=== PATIENT | female | born 1990 | race Caucasian/White ===

== ENCOUNTER 2019-02-17 15:22 | Outpatient (CLI) | payer BC ==
[2019-02-17 16:21] LABS: HCG UR QUAL NEGATIVE
== END 2019-02-17 15:23 | disposition home or self-care (01) ==
LOC: LAB 15:22
PROVIDERS: ATTEND Nurse Practitioner
DX: Z32.00 Encounter for pregnancy test, result unknown (principal); F41.8 Other specified anxiety disorders
CPT/HCPCS: 36415; 81025; 84443; 84703

== ENCOUNTER 2019-04-07 07:44 | Outpatient (CLI) | payer BC ==
[2019-04-07 08:56] LABS: HB2 TOTAL 13.9 g/dL; HEMOGLOBIN A1C 0.52 g/dL; HEMOGLOBIN A1C % 5.6 % (4.6-6.2)
== END 2019-04-07 07:45 | disposition home or self-care (01) ==
LOC: LAB 07:44
PROVIDERS: ATTEND Nurse Practitioner Obstetrics & Gynecology
DX: E66.9 Obesity, unspecified (principal)
CPT/HCPCS: 36415; 82950; 82951; 83036

== ENCOUNTER 2020-05-04 09:29 | Outpatient (CLI) | payer OTHER ==
[2020-05-04 11:38] LABS: BASOPHILS % (AUTO) 0.6 %; EOSINOPHILS # (AUTO) 0.2 10^3/uL (0.0-0.7); EOSINOPHILS % (AUTO) 3.2 %; LYMPHOCYTES # (AUTO) 2.3 10^3/uL (1.5-3.5); LYMPHOCYTES % (AUTO) 31.8 %; MEAN CORPUSCULAR HEMOGLOBIN 28.8 pg (27.0-31.0); MEAN CORPUSCULAR HGB CONC 32.5 g/dL (32.0-36.0); MEAN CORPUSCULAR VOLUME 88.7 fL (81.0-99.0); MEAN PLATELET VOLUME 11.4 fL (7.9-10.8); MONOCYTES # (AUTO) 0.4 10^3/uL (0.0-1.0); MONOCYTES % (AUTO) 6.1 %; NEUTROPHILS # (AUTO) 4.1 10^3/uL (1.5-6.6); NEUTROPHILS % (AUTO) 57.9 %; PLT - PLATELET COUNT 294 10^3/uL (130-450); RED BLOOD COUNT 4.86 10^6/uL (4.20-5.40); RED CELL DISTRIBUTION WIDTH 12.5 % (12.0-15.0); WHITE BLOOD COUNT 7.2 x10^3/uL (4.8-10.8)
[2020-05-04 13:01] LABS: HB2 TOTAL 14.5 g/dL; HEMOGLOBIN A1C 0.48 g/dL; HEMOGLOBIN A1C % 5.2 % (4.6-6.2)
[2020-05-04 13:03] LABS: ALBUMIN 4.1 g/dL (3.2-5.5); ALBUMIN/GLOBULIN RATIO 1.3 (1.0-2.2); ALKALINE PHOSPHATASE 80 IU/L (42-121); ALT ALANINE AMINOTRANSFERASE 44 IU/L (10-60); AST ASPARTATE AMINOTRANSFERASE 24 IU/L (10-42); BILIRUBIN,TOTAL 0.5 mg/dL (0.2-1.0); BUN - BLOOD UREA NITROGEN 13 mg/dL (6-20); CALCIUM 9.2 mg/dL (8.5-10.3); CARBON DIOXIDE - CO2 26 mmol/L (21-32); CHLORIDE 103 mmol/L (101-111); CHOL/HDL RATIO 4.7 (<4.4); CHOLESTEROL 196 mg/dL; CREATININE 0.8 mg/dL (0.4-1.0); GLUCOSE 92 mg/dL (70-100); HDL CHOLESTEROL 42 mg/dL; LDL CHOLESTEROL,CALCULATED 126 mg/dL; SODIUM 138 mmol/L (135-145); TOTAL PROTEIN 7.2 g/dL (6.7-8.2); VLDL CHOLESTEROL 28 mg/dL
[2020-05-04 13:09] LABS: FREE T3 2.8 pg/mL (2.5-3.9); THYROID STIMULATING HORMONE 6.81 uIU/mL (0.34-5.60)
[2020-05-04 13:11] LABS: FREE T4 (FREE THYROXINE) 0.68 ng/dL (0.58-1.64)
== END 2020-05-04 23:59 | disposition home or self-care (01) ==
LOC: LAB.WCP 09:29
PROVIDERS: ATTEND Nurse Practitioner Family
DX: E28.2 Polycystic ovarian syndrome (principal); E66.9 Obesity, unspecified; E06.3 Autoimmune thyroiditis
CPT/HCPCS: 36415; 80053; 80061; 83036; 83721; 84439; 84443; 84481; 85025

== ENCOUNTER 2020-05-10 06:44 | Outpatient (CLI) | payer OTHER ==
--- NOTE | 2020-05-10 10:05 | Ultrasound Report ---
PROCEDURE: Head or Neck Soft Tissue INDICATIONS: NAHOMY THYROIDITIS TECHNIQUE: Real time scanning was performed of the neck region of interest, with image documentation . COMPARISON: None. FINDINGS: The thyroid gland is mildly enlarged. The right thyroid lobe measures approximately 2.3 x 5 .6 cm. The left thyroid lobe measures approximately 2.2 x 5.0 cm. The isthmus measures approximately 0.9 cm in thickness. There is diffusely heterogenous thyroid echotexture. There are a few small nodul es which are of variable echogenicity and has ill-defined margins, consistent with the provided histo ry of Nahomy thyroiditis. There is no suspicious nodule warranting FNA. IMPRESSION: Mildly enlarged thyroid gland with heterogenous echotexture and multinodular appearance. 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 There is no suspicious thyroid nodule war ranting FNA by TI-RADS criteria. Reviewed by: Maco Rivera MD on 05/10/2020 10:03 AM PDT Approved by: Maco Rivera MD on 05/10/2020 10:03 AM PDT Station ID: [id number]
== END 2020-05-10 06:45 | disposition home or self-care (01) ==
LOC: DI 06:44
PROVIDERS: ATTEND Nurse Practitioner Family
DX: E06.3 Autoimmune thyroiditis (principal)
CPT/HCPCS: 76536

== ENCOUNTER 2020-11-04 19:25 | Emergency (ER) | payer OTHER ==
[2020-11-04] MEDS ORDERED: NAPROXEN 250 MG TABLET PO STA (19:47)
[2020-11-04 19:48] LABS: BILIRUBIN,URINE NEGATIVE (NEGATIVE); GLUCOSE, URINE (UA) NEGATIVE (NEGATIVE); KETONES,URINE (UA) NEGATIVE (NEGATIVE); LEUKOCYTE ESTERASE, URINE NEGATIVE (NEGATIVE); NITRITE,URINE NEGATIVE (NEGATIVE); OCCULT BLOOD,URINE NEGATIVE (NEGATIVE); PROTEIN,URINE NEGATIVE (NEGATIVE); UROBILINOGEN,URINE 0.2 (NORMAL) E.U./dL (NORMAL)
--- NOTE | 2020-11-04 19:48 | ED Physician Documentation ---
PD HPI ABD PAIN - Stated complaint Stated Complaint: ABDOMINAL PX - Chief complaint Chief Complaint: Abd Pain - History obtained from History obtained from: Patient - Additional information Additional information: 30-year-old woman with history of PCOS has had about a month and a half of constant but also waxing and waning left pelvic pain radiating to the buttocks and thighs. It is not associated vaginal bleeding, in fact her last menses was in July. It feels like previous cyst pain. She was scheduled for an ultrasound but there was some sort of mixup and was scheduled for physical thera py instead. She presents because the pain was briefly severe tonight but only for about 3 minutes. 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 Psych: Depression - Past Surgical History Past Surgical History: Yes HEENT: Tonsil/Adenoidectomy - Present Medications Home Medications: Ambulatory Orders Medication Instructions Recorded Confirmed Escitalopram [Lexapro] 10 mg PO DAILY 11/04/20 11/04/20 Metformin HCl [Metformin ER 500 mg PO TID 11/04/20 11/04/20 Osmotic] Naproxen [EC-Naproxen] 500 mg PO BID PRN #120 11/04/20 - Allergies Allergies/Adverse Reactions: Allergies Allergy/AdvReac Type Severity Reaction Status Date / Time levothyroxine sodium AdvReac Intermediate Dizziness Verified 11/04/20 19:58 - Social History Does the pt smoke?: No Smoking Status: Never smoker Does the pt drink ETOH?: No Does the pt have substance abuse?: No - Immunizations Immunizations are current?: Yes - POLST Patient has POLST: No PD ED PE NORMAL - Vitals Vital signs reviewed: Yes - General General: Alert and oriented X 3, No acute distress - Abdomen Abdomen: Soft, Non tender, Other (Exam somewhat limited by body habitus) - Back Back: No CVA TTP, No spinal TTP - Derm Derm: Normal color, Warm and dry - Extremities Extremities: No edema, No calf tenderness / cord - Neuro Neuro: Alert and oriented X 3, Normal speech Results - Vitals Vitals: Vital Signs - 24 hr 11/04/20 11/04/20 19:25 20:57 Temperature 37.2 C 36.7 C Heart Rate 93 91 Respiratory 18 16 Rate Blood Pressure 175/104 H 148/87 H O2 Saturation 99 100 Oxygen O2 Source Room air - Labs Labs: Laboratory Tests 11/04/20 11/04/20 19:29 19:29 Urine Color YELLOW Urine Clarity HAZY Urine pH 7.0 Ur Specific Zahl 1.020 Urine Protein NEGATIVE Urine Glucose (UA) NEGATIVE Urine Ketones NEGATIVE Urine Occult Blood NEGATIVE Urine Nitrite NEGATIVE Urine Bilirubin NEGATIVE Urine Urobilinogen 0.2 (NORMAL) Ur Leukocyte Esterase NEGATIVE Urine RBC None Seen Urine WBC 0-3 Ur Squamous Epith Cells RARE Squamous Urine Bacteria Rare Ur Microscopic Review INDICATED Urine Culture Comments NOT INDICATED Urine HCG, Qual NEGATIVE PD MEDICAL DECISION MAKING - ED course ED course: 30-year-old woman presents with left pelvic pain. She has a history of PCOS. An ultrasound was done and grossly normal although with multiple follicles and borderline endometrial hyperplasia. She will follow up with her upward bound director. Advised an NSAID in the meantime. Departure - Departure Disposition: 01 Home, Self Care Clinical Impression: Pelvic pain Condition: Good Record reviewed to determine appropriate education?: Yes Instructions: ED Pelvic Pain [facility] Prescriptions: Naproxen [EC-Naproxen] 500 mg PO BID PRN #120 PRN Reason: Pain Comments: Follow-up in the women's clinic as scheduled for further evaluation and treatment. Return for new or worsening symptoms. Discharge Date/Time: 11/04/20 21:14
[2020-11-04 19:53] LABS: CLARITY,URINE HAZY (CLEAR); HCG UR QUAL NEGATIVE
[2020-11-04 20:08] LABS: BACTERIA,URINE Rare /HPF (None Seen); RBC,URINE None Seen /HPF (0-5); SQUAMOUS EPITHELIAL CELL,UR RARE Squamous (<= Few)
[2020-11-04 20:58] VITALS: BP 148/87
--- NOTE | 2020-11-04 21:18 | Ultrasound Report ---
PROCEDURE: Pelvic w/Transvag+Doppler Comp INDICATIONS: L pelvic pain TECHNIQUE: Real-time scanning was performed of the pelvic organs, with image documentation. Additional endovagi nal scanning was necessary due to incomplete visualization of the adnexal and endometrial structures by transabdominal scanning. COMPARISON: Pelvic ultrasound 05/06/2020.. FINDINGS: No pathologic free abdominal or pelvic fluid. Uterus: Uterus is normal in size at 4.4 x 4.7 x 7.3 cm., Retroverted The endometrium measures 14.9 mm in combined thickness, at the threshold of hyperplastic. Ovaries: The right ovary measures 3.4 x 2.9 x 3.6 cm and the left measures 2.9 x 3.2 x 2.5 cm. There is no suspicion for ovarian torsion. IMPRESSION: A previously reported IUD has been removed and no IUD fragment is identified. No sign of ovarian tors ion bilaterally. No reactive free fluid throughout the peritoneal space. Retroverted uterus, normal i n size. The endometrial lining thickness is at the threshold for hyperplasia, but no abnormal endomet rial inflammation or nodule/polyp is seen. Reviewed by: Johnny Wilson MD on 11/04/2020 9:16 PM PST Approved by: Johnny Wilson MD on 11/04/2020 9:16 PM PST Station ID: [id number]
== END 2020-11-04 21:14 | disposition home or self-care (01) ==
LOC: ED 19:25
DX: R10.2 Pelvic and perineal pain (principal); N85.00 Endometrial hyperplasia, unspecified
CPT/HCPCS: 76830; 76856; 81001; 81025; 93975; 99284; A9270; 81003; 87086

== ENCOUNTER 2020-11-19 15:59 | Outpatient (CLI) | payer OTHER | END 2020-11-19 23:59 | disposition home or self-care (01) | LOC: LAB.WCP 15:59 | PROVIDERS: ATTEND Family Medicine | DX: K90.0 Celiac disease (principal); R11.2 Nausea with vomiting, unspecified | CPT/HCPCS: 36415; 83516 ==

== ENCOUNTER 2021-11-02 09:42 | Outpatient (CLI) | payer OTHER ==
[2021-11-02 14:01] LABS: BASOPHILS # (AUTO) 0.1 10^3/uL (0.0-0.1); BASOPHILS % (AUTO) 0.8 %; EOSINOPHILS # (AUTO) 0.3 10^3/uL (0.0-0.7); EOSINOPHILS % (AUTO) 4.1 %; HCT - HEMATOCRIT 41.9 % (37.0-47.0); HGB - HEMOGLOBIN 13.5 g/dL (12.0-16.0); LYMPHOCYTES # (AUTO) 2.6 10^3/uL (1.5-3.5); LYMPHOCYTES % (AUTO) 33.2 %; MEAN CORPUSCULAR HEMOGLOBIN 28.4 pg (27.0-31.0); MEAN CORPUSCULAR HGB CONC 32.2 g/dL (32.0-36.0); MEAN PLATELET VOLUME 11.2 fL (7.9-10.8); MONOCYTES # (AUTO) 0.5 10^3/uL (0.0-1.0); MONOCYTES % (AUTO) 5.7 %; NEUTROPHILS # (AUTO) 4.5 10^3/uL (1.5-6.6); NEUTROPHILS % (AUTO) 55.9 %; PLT - PLATELET COUNT 299 10^3/uL (130-450); RED BLOOD COUNT 4.76 10^6/uL (4.20-5.40); RED CELL DISTRIBUTION WIDTH 13.1 % (12.0-15.0)
[2021-11-02 14:24] LABS: ALBUMIN 3.7 g/dL (3.2-5.5); ALBUMIN/GLOBULIN RATIO 1.1 (1.0-2.2); BILIRUBIN,TOTAL 1.2 mg/dL (0.2-1.0); CREATININE 0.8 mg/dL (0.4-1.0); POTASSIUM 4.3 mmol/L (3.5-5.0)
[2021-11-02 14:30] LABS: THYROID STIMULATING HORMONE 5.12 uIU/mL (0.34-5.60)
[2021-11-02 14:31] LABS: FREE T3 3.03 pg/mL (2.5-3.9)
[2021-11-02 14:32] LABS: FREE T4 (FREE THYROXINE) 0.62 ng/dL (0.58-1.64)
[2021-11-02 14:40] LABS: BILIRUBIN,URINE NEGATIVE (NEGATIVE); GLUCOSE, URINE (UA) NEGATIVE (NEGATIVE); KETONES,URINE (UA) NEGATIVE (NEGATIVE); LEUKOCYTE ESTERASE, URINE NEGATIVE (NEGATIVE); NITRITE,URINE NEGATIVE (NEGATIVE); OCCULT BLOOD,URINE SMALL (NEGATIVE); PROTEIN,URINE NEGATIVE (NEGATIVE); UROBILINOGEN,URINE 0.2 (NORMAL) E.U./dL (NORMAL)
[2021-11-02 14:41] LABS: CLARITY,URINE CLEAR (CLEAR)
[2021-11-02 14:49] LABS: BACTERIA,URINE Few /HPF (None Seen); RBC,URINE 0-5 /HPF (0-5); SQUAMOUS EPITHELIAL CELL,UR FEW Squamous (<= Few); WBC,URINE 0-3 /HPF (0-5)
== END 2021-11-02 09:43 | disposition home or self-care (01) ==
LOC: LAB.N 09:42
PROVIDERS: ATTEND Physician Assistant
DX: Z00.00 Encounter for general adult medical examination without abnormal findings (principal); R11.2 Nausea with vomiting, unspecified; E06.3 Autoimmune thyroiditis
CPT/HCPCS: 36415; 80053; 81001; 84439; 84443; 84481; 85025; 87086

== ENCOUNTER 2022-06-28 05:04 | Emergency (ER) | payer OTHER ==
--- NOTE | 2022-06-28 05:20 | ED Physician Documentation ---
History of Present Illness - Stated complaint Stated Complaint: TONGUE/THROAT SWELLING - Chief complaint Chief Complaint: Allergic Rx - History obtained from History obtained from: Patient - History of Present Illness Timing: How many days ago (4) Pain level max: 0 Pain level now: 0 Improved by: no ameliorating factors Worsened by: no apparent inciting nor exacerbating factors - Additonal information Additional information: c/o 4 days of pruritic hives, diffuse but predominantly trunk, fluctuating in location with some areas improving or resolving while hives appear on other areas of body. She also developed lip swelling. She was seen at a walk in clinic 2 days ago, given PO liquid steroid (cannot recall name but this would be c/w decadron), zantac and benadryl. She was not prescribed steroids. She presents due to worsening lip swelling and new-onset of sensation of tongue swelling and throat constriction. Denies dyspnea. No apparent trigger for these symptoms. 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 - Past Surgical History Past Surgical History: Yes HEENT: Tonsil/Adenoidectomy - Present Medications Home Medications: Ambulatory Orders Medication Instructions Recorded Confirmed Escitalopram [Lexapro] 10 mg PO DAILY 11/04/20 11/04/20 Metformin HCl [Metformin ER 500 mg PO TID 11/04/20 11/04/20 Osmotic] Naproxen [EC-Naproxen] 500 mg PO BID PRN #120 11/04/20 EPINEPHrine [Epinephrine] 0.3 mg IJ ONCE PRN #2 each 06/28/22 predniSONE [Deltasone] 40 mg PO DAILY 4 Days #8 tablet 06/28/22 - Allergies Allergies/Adverse Reactions: Allergies Allergy/AdvReac Type Severity Reaction Status Date / Time levothyroxine sodium AdvReac Intermediate Dizziness Verified 11/04/20 19:58 - Social History Does the pt smoke?: No Smoking Status: Never smoker Does the pt drink ETOH?: No Does the pt have substance abuse?: No - Immunizations Immunizations are current?: Yes - POLST Patient has POLST: No PD ED PE NORMAL - Vitals Vital signs reviewed: Yes - General General: Alert and oriented X 3, No acute distress, Well developed/nourished - HEENT HEENT: Pharynx benign (no obvious tongue swelling nor swelling of posterior o/p. lips appear swollen and patient says they are denifitely swollen compared to normal) - Cardiac Cardiac: RRR, No murmur - Respiratory Respiratory: No respiratory distress, Clear bilaterally PD ED PE EXPANDED - Derm Derm: Urticaria (faint and sparse on chest, BUE (proximal)) Results - Vitals Vitals: Oxygen O2 Source Room air PD MEDICAL DECISION MAKING - ED course Complexity details: re-evaluated patient, considered differential, d/w patient ED course: given benadryl PO 50mg, decadron 10mg PO, and 0.3mg IM epinephrine. The epinephrine is included in treatment due to the perioral and, particularly, intaroral components. On reevaluation, she reports significant improvement in symptoms. She no longer feels any tongue swelling, throat constriction, and her lips are no longer swollen. She is comfortable with d/c home. Rx for prednisone and auto-injector epinephrine is sent to her pharmacy of choice. Return precautions discussed Departure - Departure Disposition: Home, Self Care Clinical Impression: Allergic reaction Qualifiers: Encounter type: initial encounter Qualified Code(s): T78.40XA - Allergy, unspecified, initial encounter Condition: Good Instructions: ED Allergic Reaction General Other Prescriptions: predniSONE [Deltasone] 40 mg PO DAILY 4 Days #8 tablet EPINEPHrine [Epinephrine] 0.3 mg IJ ONCE PRN #2 each PRN Reason: Anaphylaxis Comments: The cause of your symptoms is not apparent at this time. This is a common situation for allergic reaction; typically the cause is obvious (such as bee sting or first dose of a new medication), or else will be obscure until and unless specific tests are performed by an diploma pharmacy technician. Prescriptions for epi-pen and a steroid (prednisone) have been electronically submitted to [facility] pharmacy in [place]. Discharge Date/Time: 06/28/22 06:43
[2022-06-28] MEDS ORDERED: EPINEPHrine 1 MG/ML AMP IM STA (05:34)
[2022-06-28] MEDS ORDERED: DEXAMETHASONE 10 MG/ML VIAL PO STA (05:34)
[2022-06-28] MEDS ORDERED: CHERRY SYRUP 10 ML UDC PO ONE (05:34)
[2022-06-28] MEDS ORDERED: diphenhydrAMINE 25 MG CAPSULE PO STA (05:34)
[2022-06-28 06:30] VITALS: BP 129/71
== END 2022-06-28 06:43 | disposition home or self-care (01) ==
LOC: ED 05:04
DX: T78.40XA Allergy, unspecified, initial encounter (principal)
CPT/HCPCS: 96372; 99283; 99284; A9270

== ENCOUNTER 2022-07-01 16:59 | Outpatient (CLI) | payer OTHER ==
[2022-07-01 21:13] LABS: THYROID STIMULATING HORMONE 4.78 uIU/mL (0.34-5.60)
== END 2022-07-01 17:00 | disposition home or self-care (01) ==
LOC: LAB.N 16:59
PROVIDERS: ATTEND Physician Assistant Medical
DX: E06.3 Autoimmune thyroiditis (principal)
CPT/HCPCS: 36415; 84443

== ENCOUNTER 2022-07-07 18:42 | Outpatient (CLI) | payer OTHER ==
--- NOTE | 2022-07-08 11:39 | Ultrasound Report ---
PROCEDURE: Head or Neck Soft Tissue INDICATIONS: LOREN THYROIDITIS TECHNIQUE: Real-time scanning was performed of the thyroid gland, with image documentation. COMPARISON: 05/10/2020 FINDINGS: Right: Thyroid lobe measures 5.5 x 2.1 x 1.9 cm. Left: Thyroid lobe measures 5.3 x 1.8 x 2.0 cm. Isthmus: 9 mm thick. The thyroid gland is diffusely heterogeneous, hypoechoic, and demonstrates a lobulated margin. There are occasional linear echogenic bands coursing through the gland. Color Doppler demonstrates diffusel y decreased vascular flow throughout the gland. There are several normal sized lateral compartment lymph nodes bilaterally. No medial compartment rochelle nopathy visible. There is an ovoid hypoechoic nodule deep to the midportion of the right thyroid gland, possibly arisi ng or immediately adjacent to the gland. This measures 1.0 x 0.6 x 0.6 cm, previously measured at 1.2 x 0.7 x 0.9 cm. There is no characteristic surrounding vascular flow. IMPRESSION: 1. Heterogeneous lobulated thyroid gland with morphology consistent of chronic thyroiditis, decreased in size compared to the prior study, consistent with expected course of disease. 2. Slight decrease in size of a deep nodule associated with the right mid thyroid, potentially an exo phytic thyroid nodule or possibly parathyroid adenoma. Correlate with hormone levels. Reviewed by: Renae Valdez MD on 07/08/2022 11:37 AM PDT Approved by: Renae Valdez MD on 07/08/2022 11:37 AM PDT Station ID: [id number]
== END 2022-07-07 18:43 | disposition home or self-care (01) ==
LOC: DI 18:42
PROVIDERS: ATTEND Physician Assistant Medical
DX: E06.3 Autoimmune thyroiditis (principal); E04.1 Nontoxic single thyroid nodule

== ENCOUNTER 2023-02-09 12:29 | Outpatient (CLI) | payer OTHER | END 2023-02-09 12:30 | disposition critical access hospital (66) | LOC: EMS 12:29 | DX: R55 Syncope and collapse (principal); R42 Dizziness and giddiness; R07.9 Chest pain, unspecified | CPT/HCPCS: A0425; A0429 ==

== ENCOUNTER 2023-02-09 12:48 | Emergency (ER) | payer OTHER ==
[2023-02-09 13:14] LABS: BASOPHILS # (AUTO) 0.1 10^3/uL (0.0-0.1); BASOPHILS % (AUTO) 0.4 %; EOSINOPHILS # (AUTO) 0.2 10^3/uL (0.0-0.7); EOSINOPHILS % (AUTO) 1.3 %; HCT - HEMATOCRIT 42.5 % (37.0-47.0); HGB - HEMOGLOBIN 13.8 g/dL (12.0-16.0); LYMPHOCYTES % (AUTO) 33.5 %; MEAN CORPUSCULAR HEMOGLOBIN 28.6 pg (27.0-31.0); MEAN CORPUSCULAR HGB CONC 32.5 g/dL (32.0-36.0); MEAN PLATELET VOLUME 10.1 fL (7.9-10.8); MONOCYTES # (AUTO) 0.7 10^3/uL (0.0-1.0); MONOCYTES % (AUTO) 4.5 %; NEUTROPHILS # (AUTO) 8.9 10^3/uL (1.5-6.6); NEUTROPHILS % (AUTO) 59.8 %; PLT - PLATELET COUNT 338 10^3/uL (130-450); RED BLOOD COUNT 4.83 10^6/uL (4.20-5.40); RED CELL DISTRIBUTION WIDTH 12.9 % (12.0-15.0); WHITE BLOOD COUNT 14.8 x10^3/uL (4.8-10.8)
[2023-02-09] MEDS ORDERED: SODIUM CHLORIDE 0.9% 1,000 ML IV STA ×2 (13:24→15:20)
--- NOTE | 2023-02-09 13:24 | ED Physician Documentation ---
History of Present Illness - Stated complaint Stated Complaint: DIZZY - Chief complaint Chief Complaint: Cardiac - Additonal information Additional information: 32-year-old female who has a history of Nahomy's thyroiditis presents to the emergency department for 24 hours of chest pain, palpitations and racing heart up to 120, feeling like she has a tight breath. No cough or fevers. She recently had her levothyroxine dose adjusted by her Customer Advocate. She is also being worked up for autoimmune disorders as she has had abnormal Rh in the past. Patient is completing a 10-day prednisone taper. Review of Systems Constitutional: reports: Myalgias. denies: Fever Eyes: reports: Reviewed and negative Ears: reports: Reviewed and negative Cardiac: reports: Chest pain / pressure, Palpitations. 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: Depression - Past Surgical History Past Surgical History: Yes HEENT: Tonsil/Adenoidectomy - Present Medications Home Medications: Ambulatory Orders Medication Instructions Recorded Confirmed Escitalopram [Lexapro] 10 mg PO DAILY 11/04/20 02/09/23 Dextroamphetamine/Amphetamine 20 mg PO DAILY 02/09/23 02/09/23 [Adderall 20 mg Tablet] Levothyroxine [Synthroid] 30 mcg PO QDAC 02/09/23 02/09/23 - Allergies Allergies/Adverse Reactions: Allergies Allergy/AdvReac Type Severity Reaction Status Date / Time levothyroxine sodium AdvReac Intermediate Dizziness Verified 02/09/23 12:53 - Social History Does the pt smoke?: No Smoking Status: Never smoker Does the pt drink ETOH?: No Does the pt have substance abuse?: No - Immunizations Immunizations are current?: Yes - POLST Patient has POLST: No PD ED PE NORMAL - General General: Alert and oriented X 3, No acute distress, Well developed/nourished (Obese) - HEENT HEENT: Atraumatic, Moist mucous membranes - Neck Neck: Supple, no meningeal sign, No adenopathy - Cardiac Cardiac: RRR, No murmur, Strong equal pulses - Respiratory Respiratory: No respiratory distress - Abdomen Abdomen: Normal bowel sounds, Soft - Back Back: No CVA TTP - Derm Derm: Normal color, Warm and dry, No rash - Extremities Extremities: No deformity, No tenderness to palpate, Normal ROM s pain - Neuro Neuro: Alert and oriented X 3, manager primary care 2-12 intact Eye Opening: Spontaneous Motor: Obeys Commands Verbal: Oriented GCS Score: 15 Results - Vitals Vitals: Vital Signs - 24 hr 02/09/23 02/09/23 02/09/23 12:55 13:24 13:44 Temperature 36.5 C Heart Rate 99 85 Heart Rate [ 93 Sitting] Heart Rate [ 117 H Standing] Heart Rate [ 109 H Supine] Respiratory 16 18 Rate Blood Pressure 145/90 H 133/85 H Blood Pressure 131/94 H [Sitting] Blood Pressure 109/91 H [Standing] Blood Pressure 144/100 H [Supine] O2 Saturation 96 96 02/09/23 02/09/23 02/09/23 15:18 15:41 17:11 Temperature Heart Rate 68 81 Heart Rate [ 100 Sitting] Heart Rate [ 122 H Standing] Heart Rate [ 88 Supine] Respiratory 16 18 Rate Blood Pressure 110/64 126/80 Blood Pressure 134/96 H [Sitting] Blood Pressure [Standing] Blood Pressure 129/76 [Supine] O2 Saturation 98 100 Oxygen O2 Source Room air - EKG (time done) 1329 EKG releavant findings:: EKG personally interpreted by author of this note. Relevant findings are: Rate: Rate (enter#) (92) Rhythm: NSR [place]: Normal Intervals: Normal DC, Prolonged QT QRS: Normal Ischemia: Normal ST segments Compare to prior EKG: Old EKG unavailable Computer interpretation: Agree with computer - Labs Labs: Laboratory Tests 02/09/23 02/09/23 02/09/23 13:09 13:09 13:09 WBC 14.8 H RBC 4.83 Hgb 13.8 Hct 42.5 MCV 88.0 MCH 28.6 MCHC 32.5 RDW 12.9 Plt Count 338 MPV 10.1 Neut # (Auto) 8.9 H Lymph # (Auto) 5.0 H [place] # (Auto) 0.7 Eos # (Auto) 0.2 Baso # (Auto) 0.1 Absolute Nucleated RBC 0.00 Nucleated RBC % 0.0 Sodium 137 Potassium 3.7 Chloride 101 Carbon Dioxide 24 Anion Gap 12.0 BUN 15 Creatinine 0.8 Estimated GFR (MDRD) 84 L Glucose 91 Calcium 9.2 Total Bilirubin 0.7 AST 20 ALT 32 Alkaline Phosphatase 73 Troponin I High Sens < 2.3 L Total Protein 7.2 Albumin 3.8 Globulin 3.4 Albumin/Globulin Ratio 1.1 Lipase 31 TSH Thyroxine (T4) Serum HCG, Qual Nasal Adenovirus (PCR) Nasal B. parapertussis DNA (PCR) Nasal Coronavir 229E PCR Nasal Coronavir HKU1 PCR Nasal Coronavir NL63 PCR Nasal Coronavir OC43 PCR Nasal Enterovir/Rhinovir PCR Nasal Influenza B PCR Nasal Influenza A PCR Nasal Parainfluen 1 PCR Nasal Parainfluen 2 PCR Nasal Parainfluen 3 PCR Nasal Parainfluen 4 PCR Nasal RSV (PCR) Nasal B.pertussis DNA PCR Nasal C.pneumoniae (PCR) Jam Human Metapneumo PCR Nasal M.pneumoniae (PCR) Nasal SARS-CoV-2 (PCR) 02/09/23 02/09/23 02/09/23 13:09 13:30 15:46 WBC RBC Hgb Hct MCV MCH MCHC RDW Plt Count MPV Neut # (Auto) Lymph # (Auto) [place] # (Auto) Eos # (Auto) Baso # (Auto) Absolute Nucleated RBC Nucleated RBC % Sodium Potassium Chloride Carbon Dioxide Anion Gap BUN Creatinine Estimated GFR (MDRD) Glucose Calcium Total Bilirubin AST ALT Alkaline Phosphatase Troponin I High Sens < 2.3 L Total Protein Albumin Globulin Albumin/Globulin Ratio Lipase TSH 6.22 H Thyroxine (T4) 6.87 Serum HCG, Qual Nasal Adenovirus (PCR) NOT DETECTED Nasal B. parapertussis DNA (PCR) NOT DETECTED Nasal Coronavir 229E PCR NOT DETECTED Nasal Coronavir HKU1 PCR NOT DETECTED Nasal Coronavir NL63 PCR NOT DETECTED Nasal Coronavir OC43 PCR NOT DETECTED Nasal Enterovir/Rhinovir PCR NOT DETECTED Nasal Influenza B PCR NOT DETECTED Nasal Influenza A PCR NOT DETECTED Nasal Parainfluen 1 PCR NOT DETECTED Nasal Parainfluen 2 PCR NOT DETECTED Nasal Parainfluen 3 PCR NOT DETECTED Nasal Parainfluen 4 PCR NOT DETECTED Nasal RSV (PCR) NOT DETECTED Nasal B.pertussis DNA PCR NOT DETECTED Nasal C.pneumoniae (PCR) NOT DETECTED Jam Human Metapneumo PCR NOT DETECTED Nasal M.pneumoniae (PCR) NOT DETECTED Nasal SARS-CoV-2 (PCR) NOT DETECTED 02/09/23 15:46 WBC RBC Hgb Hct MCV MCH MCHC RDW Plt Count MPV Neut # (Auto) Lymph # (Auto) [place] # (Auto) Eos # (Auto) Baso # (Auto) Absolute Nucleated RBC Nucleated RBC % Sodium Potassium Chloride Carbon Dioxide Anion Gap BUN Creatinine Estimated GFR (MDRD) Glucose Calcium Total Bilirubin AST ALT Alkaline Phosphatase Troponin I High Sens Total Protein Albumin Globulin Albumin/Globulin Ratio Lipase TSH Thyroxine (T4) Serum HCG, Qual NEGATIVE Nasal Adenovirus (PCR) Nasal B. parapertussis DNA (PCR) Nasal Coronavir 229E PCR Nasal Coronavir HKU1 PCR Nasal Coronavir NL63 PCR Nasal Coronavir OC43 PCR Nasal Enterovir/Rhinovir PCR Nasal Influenza B PCR Nasal Influenza A PCR Nasal Parainfluen 1 PCR Nasal Parainfluen 2 PCR Nasal Parainfluen 3 PCR Nasal Parainfluen 4 PCR Nasal RSV (PCR) Nasal B.pertussis DNA PCR Nasal C.pneumoniae (PCR) Jam Human Metapneumo PCR Nasal M.pneumoniae (PCR) Nasal SARS-CoV-2 (PCR) - Rads (name of study) cxr Relevant Findings:: Final report received (No acute process) ct angio chest Relevant Findings:: Final report received (Suboptimal due to motion artifact allowing for visualization of the proximal to mid segmental arteries. With this limitation of mine, there is no clinically significant pulmonary embolus) PD Medical Decision Making - ED course Complexity details: reviewed results, re-evaluated patient, considered differential, d/w patient ED course: 32-year-old female who has a history of Nahomy's thyroiditis currently on levothyroxine 30 mics daily presents to the emergency department for several days of intermittent palpitations, chest tightness and chest pain. No pleuritic chest pain. No cough or fevers. She stated that yesterday at rest she was feeling palpitations and measured her heart rate at about 120. No syncope. Here in the emergency department she was placed on cardiac exercise physiologist and while on the monitor has had no runs of tachyarrhythmia or abnormal vital signs. She is without fever. Cardiopulmonary auscultation was also unremarkable. Chest x-ray showed no findings suggestive of pneumonia, pneumothorax pleural effusion or cardiomegaly. I obtained CBC, electrolytes as well as TSH and T4. She is completing a course of prednisone likely the cause of her mild leukocytosis of 14.8 thousand. Her electrolytes were otherwise unrevealing. Her TSH is 6.2 and the corrected T4 is 6.8. This is just above the cutoff for normal. Respiratory PCR was negative. Troponin was negative. Given more than 24 hours of symptoms this likely is adequate to rule out ACS. Could not PERC negative due to initial heart rate of 109 but by Wells criteria considered low risk for PE. We did initially check orthostatics and found that she was mildly orthostatic with a rise in her heart rate but no hypotension with position changes. She was administered a liter of IV fluids here in the ER and on repeat had felt better, but when we repeated orthostatics, her HR increased to 122 on standing. Thus a 2nd liter of IVF ordered and will repeated. 1540: Patient ambulated to the restroom and began to feel faint, dizzy and diaphoretic. When return to the monitor her heart rate was in the 60s. This is appears to resemble a vasovagal symptom. Second troponin is pending but given the worsening of symptoms will obtain a CT angio to rule out pulmonary embolism. 1730: Second troponin has resulted negative. The patient has received 2 L of crystalloid and had improved orthostasis with ambulation this time. Subsequently a CT of the chest was negative for acute findings of pulmonary embolism. At this time Patient is feeling improved and is stable for discharge home. She is recommended to follow closely with her assistant case manager for longer-term evaluation and management of her Nahomy's. We did discuss the usual emergent return precautions for failure symptoms to resolve. Departure - Departure Disposition: 01 Home, Self Care Clinical Impression: Palpitations, History of Nahomy thyroiditis Chest pain Qualifiers: Chest pain type: unspecified Qualified Code(s): R07.9 - Chest pain, unspecified Condition: Stable Record reviewed to determine appropriate education?: Yes Comments: Akanksha you are seen today in the emergency department because for several days you have been having some chest pain, chest tightness as well as palpitations at home. You do have a history of Nahomy's. We did check your labs today and your TSH was 6.2 but the corrected T4 was 6.8 just above the cutoff for normal. I suspect that some of your Nahomy's may be at play with your palpitations. I encourage you to follow closely with your assistant case manager to determine if they want to make some adjustments to your levothyroxine. You did have some mild vital sign changes with position and for this we did give you a liter of IV fluids. We did do a CT angiogram of your chest that did not show findings of a pulmonary embolism. I do recommend that you stay well-hydrated at home. You may be slightly dehydrated giving the warmer weather recently. If you find that your symptoms or not improving, you have fainting episodes, have severe shortness of air or tachycardia that does not resolve with rest and please return to the ER for a second evaluation.
--- NOTE | 2023-02-09 13:33 | XRAY Report ---
PROCEDURE: Chest 1 View X-Ray INDICATIONS: Chest Pain TECHNIQUE: One view of the chest was acquired. COMPARISON: None. FINDINGS: Surgical changes and devices: None. Lungs and pleura: No pleural effusions or pneumothorax. Lungs are clear. Mediastinum: Mediastinal contours appear normal. Heart size is normal. Bones and chest wall: No suspicious bony lesions. Overlying soft tissues appear unremarkable. IMPRESSION: No acute process. Reviewed by: Carlos Tello MD on 02/09/2023 1:32 PM PDT Approved by: Carlos Tello MD on 02/09/2023 1:32 PM PDT Station ID: [id number]
[2023-02-09 13:34] LABS: ALBUMIN 3.8 g/dL (3.2-5.5); ALBUMIN/GLOBULIN RATIO 1.1 (1.0-2.2); BILIRUBIN,TOTAL 0.7 mg/dL (0.2-1.0); CALCIUM 9.2 mg/dL (8.5-10.3); CREATININE 0.8 mg/dL (0.4-1.0); POTASSIUM 3.7 mmol/L (3.5-5.0); TOTAL PROTEIN 7.2 g/dL (6.7-8.2)
[2023-02-09 13:59] LABS: T4 (THYROXINE) 6.87 ug/dL (6.09-12.23)
[2023-02-09 14:05] LABS: THYROID STIMULATING HORMONE 6.22 uIU/mL (0.34-5.60)
[2023-02-09 14:54] LABS: B. PARAPERTUSSIS- RESP PCR PAN NOT DETECTED; B. PERTUSSIS- RESP PCR PANEL NOT DETECTED; C. PNEUMONIAE- RESP PCR PANEL NOT DETECTED; CORONAVIRUS 229E-RESP PCR NOT DETECTED; CORONAVIRUS HKU1-RESP PCR NOT DETECTED; CORONAVIRUS NL63-RESP PCR NOT DETECTED; CORONAVIRUS OC43-RESP PCR NOT DETECTED; HUMAN METAPNEUMOVIRUS NOT DETECTED; INFLUENZA A- RESP PCR PANEL NOT DETECTED; INFLUENZA B - RESP PCR PANEL NOT DETECTED; M. PNEUMONIAE- RESP PCR PANEL NOT DETECTED; PARAINFLUENZA VIRUS 1 NOT DETECTED; PARAINFLUENZA VIRUS 2 NOT DETECTED; PARAINFLUENZA VIRUS 3 NOT DETECTED; PARAINFLUENZA VIRUS 4 NOT DETECTED; RHINOVIRUS/ENTEROVIRUS NOT DETECTED; RSV- RESP PCR PANEL NOT DETECTED; SARS-CoV-2 -RESP PCR PANEL NOT DETECTED
[2023-02-09] MEDS ORDERED: ONDANSETRON 4 MG/2 ML VIAL IVP STA (15:37)
[2023-02-09] MEDS ORDERED: iohexoL-300 100 ML VIAL ONE (15:49)
[2023-02-09 16:25] LABS: HCG,QUALITATIVE BLOOD NEGATIVE
--- NOTE | 2023-02-09 17:06 | CT Report ---
PROCEDURE: ANGIO CHEST W/WO INDICATIONS: near syncope; chest pain; r/p PE CONTRAST: 80mL Omni 300 TECHNIQUE: After the administration of intravenous contrast, 2 mm axial images were acquired from the pulmonary apices to the posterior costophrenic angles during the arterial phase. In addition, 1 mm lung kernel and 5 mm soft tissue kernel reconstructions were performed. 3-dimensional coronal oblique maximum int ensity projection (MIP) reformats, 8 mm axial MIP, and 5 mm coronal and sagittal MPR reformats were t hen performed through the thorax. For radiation dose reduction, the following was used: automated exp osure control, adjustment of mA and/or kV according to patient size. COMPARISON: None FINDINGS: Image quality: Suboptimal due to motion artifact, allowing for visualization of the proximal to mid s egmental arteries. Large vessels: No filling defects within the opacified pulmonary arteries, accounting for motion and contrast timing. No evidence of acute aortic syndrome or aortic aneurysm. Lungs and pleura: No consolidation. No pleural effusions. No pneumothorax. No suspicious pulmonary n odules which require follow up. Mediastinum: Heart size is normal. No pericardial effusions. No mediastinal adenopathy by size criter ia. Chest wall and lower neck: Thyroid is unremarkable. No axillary or supraclavicular adenopathy by size . Bones: No aggressive osseous abnormality. Upper Abdomen: Unremarkable. IMPRESSION: Suboptimal due to motion artifact, allowing for visualization of the proximal to mid segmental arteri es. With this limitation in mind, there is no (clinically significant) pulmonary embolus. Reviewed by: Parrish Rodriguez on 02/09/2023 5:05 PM PDT Approved by: Parrish Rodriguez on 02/09/2023 5:05 PM PDT Station ID: [id number]
[2023-02-09 17:13] VITALS: BP 126/80
[2023-02-09] MEDS ORDERED: iohexoL-300 100 ML VIAL IVP ONE (18:29)
== END 2023-02-09 17:46 | disposition home or self-care (01) ==
LOC: EDUNIT# → ED 12:48
DX: R00.2 Palpitations (principal); R07.9 Chest pain, unspecified; E06.3 Autoimmune thyroiditis; Z20.822 Contact with and (suspected) exposure to COVID-19
CPT/HCPCS: 36415; 71045; 71275; 80053; 83690; 84436; 84443; 84484; 84703; 85025; 87633; 93005; 96374; 99284; Q9967

== ENCOUNTER 2023-03-06 15:09 | Outpatient (CLI) | payer OTHER ==
[2023-03-06 16:04] VITALS: BP 130/80
== END 2023-03-06 15:10 | disposition home or self-care (01) ==
LOC: MAC.MOP 15:09
PROVIDERS: ATTEND Physician Assistant
DX: R00.2 Palpitations (principal)
CPT/HCPCS: 93242

== ENCOUNTER 2023-03-16 08:00 | Outpatient (CLI) | payer OTHER | END 2023-03-16 23:59 | disposition home or self-care (01) | LOC: LAB.R 08:00 | PROVIDERS: ATTEND Physician Assistant | DX: R10.9 Unspecified abdominal pain (principal) | CPT/HCPCS: 83993 ==

== ENCOUNTER 2023-03-24 10:00 | Outpatient (CLI) | payer OTHER | END 2023-03-24 10:01 | disposition home or self-care (01) | LOC: MAC.INF 10:00 | PROVIDERS: ATTEND Physician Assistant | DX: R00.0 Tachycardia, unspecified (principal); I49.1 Atrial premature depolarization; I49.3 Ventricular premature depolarization | CPT/HCPCS: 93244 ==

== ENCOUNTER 2023-04-02 10:53 | Outpatient (CLI) | payer OTHER | END 2023-04-02 10:54 | disposition home or self-care (01) | LOC: NS 10:53 | PROVIDERS: ATTEND Physician Assistant | DX: Z71.3 Dietary counseling and surveillance (principal); E66.01 Morbid (severe) obesity due to excess calories; Z68.42 Body mass index [BMI] 45.0-49.9, adult | CPT/HCPCS: 97802 ==

== ENCOUNTER 2023-06-11 08:00 | Outpatient (CLI) | payer OTHER | END 2023-06-11 23:59 | disposition home or self-care (01) | LOC: LAB.N 08:00 | PROVIDERS: ATTEND Registered Nurse | DX: R30.0 Dysuria (principal) | CPT/HCPCS: 87086 ==

== ENCOUNTER 2023-07-01 08:59 | Outpatient (CLI) | payer OTHER ==
--- NOTE | 2023-07-01 13:34 | CT Report ---
PROCEDURE: ABDOMEN/PELVIS WO INDICATIONS: Flank Pain. Bilateral for 2 weeks. TECHNIQUE: A CT scan of the abdomen and pelvis was performed without the use of intravenous contrast. Images we re recorded and evaluated at appropriate window settings. Reformats: coronal and sagittal. For radiat ion dose reduction, the following was used: automated exposure control, adjustment of mA and/or kV ac cording to patient size. COMPARISON: None. FINDINGS: Image quality: Excellent. Lung bases and heart: No suspicious pulmonary nodules or consolidation. No basilar effusion. No hiata l hernia. Evaluation of the visceral organs is limited due to the lack of intravenous contrast. Liver: Unremarkable. Gallbladder and biliary tree: No radiopaque stones or wall thickening. No biliary dilation. Spleen: No splenomegaly. Pancreas: Unremarkable. Adrenals: Unremarkable. Kidneys and ureters: No hydronephrosis or nephrolithiasis bilaterally.. No renal cystic lesion which requires follow up. No solid mass. Bowel and peritoneum: Small and large bowel is normal in caliber, without obstruction. Normal appendi x (series 2 image 66). No pneumatosis, pneumoperitoneum or portal venous gas. Lymph nodes: No central or retroperitoneal adenopathy by size criteria. Vessels: No infrarenal aortic aneurysm. PELVIS Reproductive organs: Uterus is unremarkable. Left adnexal lesion measuring 4 x 3.7 cm with Hounsfield unit of 80. Calcified pelvic phleboliths. Bladder: No wall thickness, accounting for underdistention. Pelvic lymph nodes: No pelvic adenopathy by size criteria. Bones: No acute fracture. No aggressive appearing lytic or blastic osseous lesion. Other: No significant ventral or inguinal hernia. IMPRESSION: 1. No CT findings to explain patient's flank pain. Specifically, no hydronephrosis or obstructing ofe al stone. 2. Left adnexal lesion measuring 4 x 3.7 cm with Hounsfield units of 80 which is indeterminate. Diffe rential includes a hemorrhagic cyst or endometrioma. Recommend a pelvic ultrasound for further charac terization. Reviewed by: Ana Hayes MD on 07/01/2023 1:33 PM PDT Approved by: Ana Hayes MD on 07/01/2023 1:33 PM PDT Station ID: [id number]
== END 2023-07-01 09:00 | disposition home or self-care (01) ==
LOC: DI 08:59
PROVIDERS: ATTEND Registered Nurse
DX: R11.0 Nausea (principal); R10.9 Unspecified abdominal pain; R30.0 Dysuria; R93.89 Abnormal findings on diagnostic imaging of other specified body structures

== ENCOUNTER 2023-08-01 14:43 | Outpatient (CLI) | payer OTHER ==
--- NOTE | 2023-08-02 14:43 | Ultrasound Report ---
PROCEDURE: Head or Neck Soft Tissue INDICATIONS: LOREN THYROIDITIS TECHNIQUE: Real-time scanning was performed of the thyroid gland, with image documentation. COMPARISON: Thyroid ultrasound dated 07/07/2022 FINDINGS: Right: Thyroid lobe measures 4.8 x 1.5 x 1.9 cm, and is heterogeneous in echotexture. Left: Thyroid lobe measures 5.2 x 2.2 x 1.6 cm, and is heterogeneous in echotexture. Isthmus: 1 mm thick. Nodule number: One Location: Right inferior Size: 0.7 x 0.5 x 0.7 cm. Previously measured 1.0 x 0.6 x 0.6 Composition: Solid (2 points). Echogenicity: Hypoechoic (2 points). Shape: wider than tall (0 points). Margins: Smooth (0 points). Echogenic foci: None (0 points). Total points: 4 ACR TI-RADS category: 4 Nodule number: Two Location: Left mid lateral Size: 1.0 x 0.8 x 1.0 cm. Not previously visualized Composition: Solid (2 points). Echogenicity: Hypoechoic (2 points). Shape: wider than tall (0 points). Margins: Smooth (0 points). Echogenic foci: None (0 points). Total points: 4 ACR TI-RADS category: 4 IMPRESSION: 1. 2 TI RADS 4 lesions, one of which measures 1 cm in diameter. Follow-up at 1, 2, 3, and 5 years rec ommended. ACR TI-RADS definitions and recommendations: TI-RADS 1 (benign): 0 points. FNA not needed. TI-RADS 2 (not suspicious): 2 points. FNA not needed. TI-RADS 3 (mildly suspicious): 3 points. "FNA if 2.5 cm or larger, follow up if 1.5 cm or larger (at 1, 3, and 5 years). TI-RADS 4 (moderately suspicious): 4-6 points. "FNA if 1.5 cm or larger, follow up if 1 cm or larger (at 1, 2, 3, and 5 years). TI-RADS 5 (highly suspicious): 7 points or more. "FNA if 1 cm or larger, follow up if 0.5 cm or larger (every year for 5 years). Reviewed by: Radha Driver MD on 08/02/2023 2:42 PM PST Approved by: Radha Driver MD on 08/02/2023 2:42 PM PST Station ID: [id number]
== END 2023-08-01 14:44 | disposition home or self-care (01) ==
LOC: DI 14:43
PROVIDERS: ATTEND Physician Assistant
DX: E04.2 Nontoxic multinodular goiter (principal); E06.3 Autoimmune thyroiditis

== ENCOUNTER 2023-08-01 15:15 | Outpatient (CLI) | payer OTHER ==
--- NOTE | 2023-08-02 12:18 | Ultrasound Report ---
PROCEDURE: Pelvic w/Transvaginal INDICATIONS: ADNEXAL MASS TECHNIQUE: Real-time scanning was performed of the pelvic organs, with image documentation. Additional endovagi nal scanning was necessary due to incomplete visualization of the adnexal and endometrial structures by transabdominal scanning. COMPARISON: None. FINDINGS: Uterus: Uterus is anteverted and normal in size at 7.2 x 4.0 x 5.1 cm. The myometrium is homogeneou s. The endometrium measures 7 mm in combined thickness. There is a midline fundal submucosal fibroi d which measures 1.9 x 1.3 x 2.0 cm (this measured 1.2 x 0.6 x 0.7 cm on the comparison ultrasound da aundrea 11/04/2020). Trace fluid is present in the endocervical canal. A small echogenic focus within the e ndometrium raises suspicion for a small endometrial polyp. This measures 0.5 x 0.8 x 0.4 cm. Ovaries: The right ovary measures 3.1 x 2.1 x 2.3 cm, with a calculated ovarian volume of 8.08 cc. The left ovary measures 2.9 x 2.4 x 2.0 cm, with a calculated ovarian volume of 8.03 cc. The ovaries have a normal sonographic appearance. Less than 12 follicles can be seen in each ovary. No cystic lesions measuring greater than 3 cm. A hypoechoic, ill-defined region is identified posterior to the left ovary by transabdominal images. However, it is unclear whether this is a true finding on the tra nsvaginal images. Other: No pathologic free abdominal or pelvic fluid. IMPRESSION: 1. Questionable subcentimeter endometrial polyp. If further characterization is warranted, hystoroson ogram could be used. 2. No definite adnexal lesion near the left ovary as speculated by CT examination. The left ovary is slightly smaller on ultrasound measurements than on the comparison CT dated 07/01/2023. Gynecologic pr otocol MRI could be helpful to further characterize the CT findings and elucidate the sonographic fin dings clinically indicated. Reviewed by: Radha Driver MD on 08/02/2023 12:16 PM PST Approved by: Radha Driver MD on 08/02/2023 12:16 PM PST Station ID: [id number]
== END 2023-08-01 23:59 | disposition home or self-care (01) ==
LOC: DI 15:15
PROVIDERS: ATTEND Physician Assistant
DX: R19.09 Other intra-abdominal and pelvic swelling, mass and lump (principal); E04.2 Nontoxic multinodular goiter; E06.3 Autoimmune thyroiditis

== ENCOUNTER 2023-08-17 16:11 | Outpatient (CLI) | payer OTHER ==
[2023-08-17] MEDS ORDERED: ALBUTEROL 1 PUFF INH STA (17:46)
== END 2023-08-17 16:12 | disposition home or self-care (01) ==
LOC: RT 16:11
PROVIDERS: ATTEND Physician Assistant
DX: R06.02 Shortness of breath (principal)
CPT/HCPCS: 94060; 94729

== ENCOUNTER 2023-08-21 08:45 | Outpatient (CLI) | payer OTHER ==
[~2023-08-21 08:45] MED LIST: GADOTERATE MEGLUMINE 10 MMOL/20 ML VIAL ONE; GADOTERATE MEGLUMINE 5 MMOL/10 ML VIAL ONE
[2023-08-21] MEDS: GADOTERATE MEGLUMINE 10 MMOL/20 ML VIAL IVP ONE (10:37)
--- NOTE | 2023-08-21 14:04 | MRI Report ---
PROCEDURE: PELVIS W/WO INDICATIONS: ADNEXAL MASS CONTRAST: clariscan 29.0 ml TECHNIQUE: Coronal ultra fast SE, sagittal breath-hold T2 FSE; axial T1 FSE with and without fat saturation thro ugh the pelvis. Optional long- and short-axis uterine nonbreath-hold T2 FSE through the uterus. Sag ittal or axial dynamic ultra fast GE during administration of contrast. Post-contrast axial or coron al ultra fast GE / 2-D spoiled GE with fat saturation from the iliac crests to the symphysis. Option al diffusion weighted imaging and ADC may be performed. COMPARISON: CT 07/01/2023, ultrasound 08/01/2023 FINDINGS: Image quality: Excellent. Uterus: Uterus is normal in size. Endometrium is normal in thickness. Junctional zone is normal in thickness at 12 mm or less. Uterus is neutral, and slightly anteflexed. Adnexa: Both ovaries are normal in size, without suspicious cystic or solid lesions. Urinary system: Bladder wall is normal in thickness. Distal ureters are non distended. Urethra louann ears normal in morphology. Nodes and vessels: No pelvic or inguinal adenopathy by size criteria. Iliac vessels are normal in s ize. Bowel and peritoneum: No pathologic free pelvic fluid. Inferior colon and small bowel loops are nor mal in caliber. Soft tissues: No inguinal hernias. No findings of pelvic floor incompetence in the absence of provo cation. Bones: Marrow demonstrates normal overall signal. IMPRESSION: No suspicious adnexal mass. It is likely that there was a resolved hemorrhagic cyst between 07/01/2023 and 08/01/2023. Reviewed by: Parrish Rodriguez on 08/21/2023 2:02 PM PST Approved by: Parrish Rodriguez on 08/21/2023 2:02 PM PST Station ID: [id number]
== END 2023-08-21 08:46 | disposition home or self-care (01) ==
LOC: DI 08:45
PROVIDERS: ATTEND Physician Assistant
DX: R19.09 Other intra-abdominal and pelvic swelling, mass and lump (principal)

== ENCOUNTER 2023-11-27 17:09 | Outpatient (CLI) | payer OTHER ==
--- NOTE | 2023-11-28 00:18 | CT Report ---
PROCEDURE: Chest WO INDICATIONS: ADENOPATHY, SHORT OF BREATH TECHNIQUE: A CT scan of the chest was performed. Intravenous contrast media was not administered. Images were re corded and evaluated at appropriate window settings. Reformats: axial MIP of the chest, coronal and s agittal. For radiation dose reduction, the following was used: automated exposure control, adjustment of mA and/or kV according to patient size. COMPARISON: CT chest 02/09/2023. FINDINGS: Image quality: Diagnostic. Chest wall and lower neck: No thyroid nodule which requires sonographic follow up. No axillary or sup raclavicular adenopathy by size. Lungs and pleura: No consolidation. No pleural effusions. No pneumothorax. No suspicious pulmonary n odules which require follow up. Few scattered micronodules measuring 2 mm or less are stable compare d to prior. Mediastinum: Heart size is normal. No pericardial effusion. Mildly dilated main pulmonary artery shanique uring 3.1 cm. Thoracic aorta is normal in caliber.. No mediastinal adenopathy by size criteria. Bones: No aggressive osseous abnormality. Upper Abdomen: Unremarkable. IMPRESSION: 1.No acute pulmonary abnormalities. 2.Mildly dilated main pulmonary artery, suggestive of pulmonary hypertension. 3.No enlarged lymph nodes. 4.Few scattered pulmonary micronodules measuring 2 mm or less are stable compared to prior. Reviewed by: Salty Liriano MD on 11/28/2023 12:17 AM PST Approved by: Salty Liriano MD on 11/28/2023 12:17 AM PST Station ID: [id number]
== END 2023-11-27 17:10 | disposition home or self-care (01) ==
LOC: DI 17:09
PROVIDERS: ATTEND Physician Assistant
DX: R59.9 Enlarged lymph nodes, unspecified (principal); R06.02 Shortness of breath; I28.8 Other diseases of pulmonary vessels; R91.8 Other nonspecific abnormal finding of lung field

== ENCOUNTER 2023-12-06 11:48 | Outpatient (CLI) | payer OTHER ==
--- NOTE | 2023-12-06 20:35 | Ultrasound Report ---
PROCEDURE: Soft Tissue Head or Neck INDICATIONS: ADENOPATHY TECHNIQUE: Real-time scanning was performed of the thyroid gland, with image documentation. COMPARISON: None FINDINGS: In the left neck corresponding to the palpable region, there is a lymph node with normal morphology w ith fatty hilum measuring 1.6 x 0.5 x 1 cm. IMPRESSION: Palpable abnormality in the left neck corresponds to a normal, nonenlarged lymph node. Reviewed by: Ana Hayes MD on 12/06/2023 8:34 PM PDT Approved by: Ana Hayes MD on 12/06/2023 8:34 PM PDT Station ID: [id number]
== END 2023-12-06 11:49 | disposition home or self-care (01) ==
LOC: DI 11:48
PROVIDERS: ATTEND Physician Assistant
DX: R59.9 Enlarged lymph nodes, unspecified (principal)

== ENCOUNTER 2023-12-09 13:42 | Outpatient (CLI) | payer OTHER | END 2023-12-09 13:43 | disposition home or self-care (01) | LOC: DI 13:42 | PROVIDERS: ATTEND Physician Assistant | DX: I27.20 Pulmonary hypertension, unspecified (principal); R06.02 Shortness of breath | CPT/HCPCS: 93307 ==

== ENCOUNTER 2024-05-11 10:32 | Outpatient (CLI) | payer OTHER ==
[2024-05-11 11:47] LABS: FERRITIN 41.4 ng/mL (11.0-306.8)
[2024-05-12 19:07] LABS: SJOGREN'S ANTI-SS-B <0.2 AI (0.0-0.9)
[2024-05-13 14:09] LABS: IMMUNOGLOBULIN A (IGA) 178 mg/dL (87-352); IMMUNOGLOBULIN G (IGG) 972 mg/dL (586-1602); IMMUNOGLOBULIN M (IGM) 84 mg/dL (26-217)
[2024-05-15 19:06] LABS: TRYPTASE 7.8 ug/L (2.2-13.2)
== END 2024-05-11 10:33 | disposition home or self-care (01) ==
LOC: LAB 10:32
PROVIDERS: ATTEND Psychiatry & Neurology Neurology
DX: D89.40 Mast cell activation, unspecified (principal); G90.A Postural orthostatic tachycardia syndrome [POTS]; Q79.62 Hypermobile Ehlers-Danlos syndrome
CPT/HCPCS: 36415; 81599; 82384; 82607; 82728; 82746; 82784; 83519; 83520; 83835; 84207; 85598; 85613; 85732; 86235; 86316; 86334

== ENCOUNTER 2024-05-13 10:56 | Outpatient (CLI) | payer OTHER ==
[2024-05-13 11:25] LABS: CREATININE,URINE 59.2 mg/dL
== END 2024-05-13 10:57 | disposition home or self-care (01) ==
LOC: LAB.R 10:56
PROVIDERS: ATTEND Psychiatry & Neurology Neurology
DX: D89.40 Mast cell activation, unspecified (principal); G90.A Postural orthostatic tachycardia syndrome [POTS]; Q79.62 Hypermobile Ehlers-Danlos syndrome
CPT/HCPCS: 81599; 82570